=== PATIENT | male | born 1975 | race Caucasian/White ===

== ENCOUNTER 2024-08-10 13:18 | Observation (INO) | payer BC ==
--- NOTE | 2024-08-10 13:36 | ED ---
General Adult HPI - General Stated complaint: sob cp Time Seen by Provider: 08/10/24 13:29 Source: patient Mode of arrival: ambulatory Limitations: no limitations - History of Present Illness Initial comments: Dictation was produced using [employer] dictation software. please excuse any grammatical, word or spelling errors. Chief Complaint: 48-year-old male presents emergency department with chest pain History of Present Illness: Patient is a 48-year-old male presents emergency department with left anterior chest pain. He describes the pain as pressure. States that it feels like a pressure on his left anterior chest. States that there is no radiation of symptoms. Does complain of some clamminess and diaphoresis nausea with it. No obvious family history of heart attacks. Patient has been having the symptoms that have been worsening for the last several days. Denies any association of symptoms with eating. The ROS documented in this emergency department record has been reviewed and confirmed by me. Those systems with pertinent positive or negative responses have been documented in the HPI. All other systems are other negative and/or noncontributory. - Related Data Home Medications Medication Instructions Recorded Confirmed No Known Home Medications 08/10/24 08/10/24 Allergies Allergy/AdvReac Type Severity Reaction Status Date / Time aspirin Allergy Unknown Verified 08/10/24 15:43 Penicillins Allergy Rash/Hives Verified 08/10/24 15:43 macadamia nut oil AdvReac "blacked Verified 08/10/24 15:43 out" Review of Systems ROS Statement: Those systems with pertinent positive or pertinent negative responses have been documented in the HPI. ROS Other: All systems not noted in ROS Statement are negative. Past Medical History Past Medical History: No Reported History Past Surgical History: Appendectomy Additional Past Surgical History / Comment(s): bilateral arm surgery, Past Psychological History: No Psychological Hx Reported Smoking Status: Never smoker Past Alcohol Use History: Occasional Past Drug Use History: None Reported General Exam - General Exam Comments Initial Comments: PHYSICAL EXAM: General Impression: Alert and oriented x3, acute distress secondary to pain HEENT: Normocephalic atraumatic, extra-ocular movements intact, pupils equal and reactive to light bilaterally, mucous membranes moist. Cardiovascular: Heart regular rate and rhythm Chest: Able to complete full sentences, no retractions, no tachypnea Abdomen: abdomen soft, non-tender, non-distended, no organomegaly Musculoskeletal: Pulses present and equal in all extremities, no peripheral edema Motor: no focal deficits noted Neurological: CN II-XII grossly intact, no focal motor or sensory deficits noted Skin: Intact with no visualized rashes Psych: Normal affect and mood Limitations: no limitations Course Vital Signs 08/10/24 08/10/24 08/10/24 13:28 13:55 16:31 Temperature 97.8 F Pulse Rate 96 96 85 Respiratory 18 20 20 Rate Blood Pressure 138/91 129/96 117/67 O2 Sat by Pulse 98 97 96 Oximetry EKG Findings - EKG Comments: EKG Findings:: My EKG interpretation: Ventricular rate 70, sinus rhythm,. 160, QRS 100, QTc 381. No NC prolongation, no QTC prolongation, no ST or T-wave changes noted. Overall, this EKG is unremarkable Medical Decision Making - Medical Decision Making Was pt. sent in by a medical professional or institution (, PA, HYDRAULIC DREDGE OPERATOR, urgent care, hospital, or penitentiary...) When possible be specific @ -No Did you speak to anyone other than the patient for history (EMS, parent, family, police, friend...)? What history was obtained from this source @ -No Did you review nursing and triage notes (agree or disagree)? Why? @ -I reviewed and agree with nursing and triage notes Were old charts reviewed (outside hosp., previous admission, EMS record, old EKG, old radiological studies, urgent care reports/EKG's, penitentiary records)? Report findings @ -No old charts were reviewed Differential Diagnosis (chest pain, altered mental status, abdominal pain women, abdominal pain men, vaginal bleeding, musculoskeletal, weakness, fever, dyspnea, syncope, headache, dizziness, GI bleed, back pain, seizure, CVA, palpatations, mental health)? @ -Differential Chest Pain: Stable Angina, Unstable Angina, STEMI, NSTEMI Aortic Dissection, Pneumothorax, Musculoskeletal, Esophageal Spasm GERD, Cholecystitis, Pancreatitis, Zoster, this is not meant to be an all-inclusive list. EKG interpreted by me (3pts min.). @ -See above X-rays interpreted by me (1pt min.). @ -X-ray of the chest is nonacute CT interpreted by me (1pt min.). @ -None done U/S interpreted by me (1pt. min.). @ -None done What testing was considered but not performed or refused? (CT, X-rays, U/S, labs)? Why? @ -None What meds were considered but not given or refused? Why? @ -None Was smoking cessation discussed for >3mins.? @ -No Were there social determinants of health that impacted care today? How? (Homelessness, low income, unemployed, alcoholism, drug addiction, transportation, low edu. Level, literacy, decrease access to med. care, detention, rehab)? @ -No Was there de-escalation of care discussed even if they declined (Discuss DNR or withdrawal of care, Hospice)? DNR status @ -No What co-morbidities impacted this encounter? (DM, HTN, Smoking, COPD, CAD, Cancer, CVA, ARF, Chemo, Hep., AIDS, mental health diagnosis, sleep apnea, morbid obesity)? @ -None Was patient admitted / discharged? Hospital course, mention meds given and route, prescriptions, significant lab abnormalities, going to OR and other pertinent info. @ -48-year-old male presents with chest pain. Symptoms concerning for acute coronary syndrome. Vital signs are stable. EKG is unremarkable. Laboratory evaluation is unremarkable. Troponin is negative. Disposition options were discussed with patient is agreeable for hospital admission with cardiology consultation. Did you discuss the management of the patient with other professionals (professionals i.e. , PA, HYDRAULIC DREDGE OPERATOR, lab, RT, psych nurse, social welfare clerk, new accounts clerk, teacher, commissioned fire officer, lead case manager)? Give summary @ -Case discussed with hospitalist for admission Was critical care preformed (if so, how long)? @ -No Undiagnosed new problem with uncertain prognosis? @ -No Drug Therapy requiring intensive monitoring for toxicity (Heparin, Nitro, Insulin, Cardizem)? @ -No Were any procedures done? @ -No Diagnosis/symptom? Acute, or Chronic, or Acute on Chronic? Uncomplicated (without systemic symptoms) or Complicated (systemic symptoms)? @ -Acute coronary syndrome Side effects of treatment? @ -No Exacerbation, Progression, or Severe Exacerbation? @ -No Poses a threat to life or bodily function? How? (Chest pain, [place], GA, pneumonia, PE, COPD, DKA, ARF, appy, cholecystitis, CVA, Diverticulitis, Homicidal, Suicidal, threat to staff... and all critical care pts) @ -yes - Lab Data Result diagrams: 08/10/24 13:47 08/10/24 13:47 Lab Results 08/10/24 08/10/24 08/10/24 Range/Units 13:47 13:47 13:47 WBC 5.8 (3.8-10.6) k/uL RBC 5.13 (4.30-5.90) m/uL Hgb 15.9 (13.0-17.5) gm/dL Hct 46.1 (39.0-53.0) % MCV 90.0 (80.0-100.0) fL MCH 30.9 (25.0-35.0) pg MCHC 34.4 (31.0-37.0) g/dL RDW 13.0 (11.5-15.5) % Plt Count 172 (150-450) k/uL MPV 8.6 Neutrophils % 55 % Lymphocytes % 25 % Monocytes % 12 % Eosinophils % 4 % Basophils % 0 % Neutrophils # 3.2 (1.3-7.7) k/uL Lymphocytes # 1.5 (1.0-4.8) k/uL Monocytes # 0.7 (0-1.0) k/uL Eosinophils # 0.2 (0-0.7) k/uL Basophils # 0.0 (0-0.2) k/uL PT 11.1 (10.0-12.5) sec INR 1.0 (<1.2) APTT 24.1 (22.0-30.0) sec Sodium 139 (137-145) mmol/L Potassium 4.2 (3.5-5.1) mmol/L Chloride 104 (98-107) mmol/L Carbon Dioxide 18 L (22-30) mmol/L Anion Gap 17 mmol/L BUN 18 (9-20) mg/dL Creatinine 1.01 (0.66-1.25) mg/dL Est GFR (CKD-EPI)AfAm >90 (>60 ml/min/1.73 sqM) Est GFR (CKD-EPI)NonAf 88 (>60 ml/min/1.73 sqM) Glucose 82 (74-99) mg/dL Calcium 9.6 (8.4-10.2) mg/dL Magnesium 2.0 (1.6-2.3) mg/dL Total Bilirubin 0.9 (0.2-1.3) mg/dL AST 30 (17-59) U/L ALT 33 (4-49) U/L Alkaline Phosphatase 63 (38-126) U/L Troponin I (0.000-0.034) ng/mL NT-Pro-B Natriuret Pep <20 pg/mL Total Protein 7.5 (6.3-8.2) g/dL Albumin 4.4 (3.5-5.0) g/dL 08/10/24 Range/Units 13:47 WBC (3.8-10.6) k/uL RBC (4.30-5.90) m/uL Hgb (13.0-17.5) gm/dL Hct (39.0-53.0) % MCV (80.0-100.0) fL MCH (25.0-35.0) pg MCHC (31.0-37.0) g/dL RDW (11.5-15.5) % Plt Count (150-450) k/uL MPV Neutrophils % % Lymphocytes % % Monocytes % % Eosinophils % % Basophils % % Neutrophils # (1.3-7.7) k/uL Lymphocytes # (1.0-4.8) k/uL Monocytes # (0-1.0) k/uL Eosinophils # (0-0.7) k/uL Basophils # (0-0.2) k/uL PT (10.0-12.5) sec INR (<1.2) APTT (22.0-30.0) sec Sodium (137-145) mmol/L Potassium (3.5-5.1) mmol/L Chloride (98-107) mmol/L Carbon Dioxide (22-30) mmol/L Anion Gap mmol/L BUN (9-20) mg/dL Creatinine (0.66-1.25) mg/dL Est GFR (CKD-EPI)AfAm (>60 ml/min/1.73 sqM) Est GFR (CKD-EPI)NonAf (>60 ml/min/1.73 sqM) Glucose (74-99) mg/dL Calcium (8.4-10.2) mg/dL Magnesium (1.6-2.3) mg/dL Total Bilirubin (0.2-1.3) mg/dL AST (17-59) U/L ALT (4-49) U/L Alkaline Phosphatase (38-126) U/L Troponin I <0.012 (0.000-0.034) ng/mL NT-Pro-B Natriuret Pep pg/mL Total Protein (6.3-8.2) g/dL Albumin (3.5-5.0) g/dL Disposition Clinical Impression: Chest pain Disposition: ADMITTED IP TO THIS HOSP Referrals: None,Stated [Primary Care Provider] - 1-2 days Decision Time: 16:35
[2024-08-10] MEDS: NITROGLYCERIN SL TABS 0.4 MG TAB SUBLINGUAL STA (13:53)
[2024-08-10 13:59] LABS: Basophils % (A) 0 %; Eosinophils # (A) 0.2 k/uL (0-0.7); Eosinophils % (A) 4 %; HCT 46.1 % (39.0-53.0); HGB 15.9 gm/dL (13.0-17.5); Lymphocytes # (A) 1.5 k/uL (1.0-4.8); Lymphocytes % (A) 25 %; MCH 30.9 pg (25.0-35.0); MCHC 34.4 g/dL (31.0-37.0); Mean Platelet Volume 8.6; Monocytes # (A) 0.7 k/uL (0-1.0); Monocytes % (A) 12 %; Neutrophils # (A) 3.2 k/uL (1.3-7.7); Neutrophils % (A) 55 %; Platelet Count 172 k/uL (150-450); RBC 5.13 m/uL (4.30-5.90); WBC 5.8 k/uL (3.8-10.6)
--- NOTE | 2024-08-10 14:18 | XR ---
EXAMINATION TYPE: XR chest 2V DATE OF EXAM: 08/10/2024 2:02 PM COMPARISON: None CLINICAL INDICATION: Male, 48 years old with history of Chest Pain; TECHNIQUE: XR chest 2V Frontal and lateral views of the chest. FINDINGS: Lungs/Pleura: There is no evidence of pleural effusion, focal consolidation, or pneumothorax. Pulmonary vascularity: Unremarkable. Heart/mediastinum: Cardiomediastinal silhouette is unremarkable. Musculoskeletal: No acute osseous pathology. IMPRESSION: No acute cardiopulmonary disease/process. [facility], , 08/10/2024 2:15 PM
[2024-08-10 14:47] LABS: Partial Thromboplastin Time 24.1 sec (22.0-30.0); Prothrombin Time 11.1 sec (10.0-12.5)
[2024-08-10 14:51] LABS: ALT 33 U/L (4-49); AST 30 U/L (17-59); African American GFR (CKD) >90 (>60 ml/min/1.73 sqM); Albumin 4.4 g/dL (3.5-5.0); Blood Urea Nitrogen 18 mg/dL (9-20); Glucose 82 mg/dL (74-99); Non-African American GFR(CKD) 88 (>60 ml/min/1.73 sqM); Total Bilirubin 0.9 mg/dL (0.2-1.3); Total Protein 7.5 g/dL (6.3-8.2)
[2024-08-10 14:52] LABS: Alkaline Phosphatase 63 U/L (38-126)
[2024-08-10 14:59] LABS: NT-Pro-B-Type Natriuretic Pept <20 pg/mL
[2024-08-10 16:05] LABS: Anion Gap 17 mmol/L; Calcium 9.6 mg/dL (8.4-10.2); Carbon Dioxide 18 mmol/L (22-30); Chloride 104 mmol/L (98-107); Sodium 139 mmol/L (137-145)
[2024-08-10 16:16] LABS: Potassium 4.2 mmol/L (3.5-5.1)
[2024-08-10] MEDS ORDERED: NITROGLYCERIN SL TABS 0.4 MG TAB SUBLINGUAL PRN (16:31)
[2024-08-10] MEDS: ASPIRIN 81 MG PO STA (16:34)
[2024-08-10] MEDS ORDERED: HEPARIN SODIUM 1,000 UN/ML (10ML VL) IV PRN (17:18)
--- NOTE | 2024-08-10 17:20 | P.HPIM ---
History of Present Illness H&P Date: 08/10/24 Patient is a 48-year-old male with past medical history of appendectomy, who presented to the ER on 08/10 with chest pain. The pain is left-sided, pressure- like, comes and goes without known triggers, relieved on its own, nonradiating, associated diaphoresis, shortness of breath and nausea. Symptoms started several months ago patient is physically active, exercises, denies symptoms during exertion. Denies any association with food intake, no reflux, indigestion, bowel habit changes. patient is never smoker, family history positive for denies on his mother side: Grandfather and uncle atrial in 50s and 60s Denies personal history of DM, HTN, thyroid diseases. Vital signs: Afebrile, BP 138/91, heart rate in 90s, satting well on room air. CBC unremarkable, coagulation panel unremarkable, CMP significant only for bicarb of 18, negative troponin, negative proBNP. EKG showed sinus rhythm, there are T wave abnormalities, inferior leads changes, no significant ST elevation Patient continues to complain of intermittent left-sided chest pain, due to concern for unstable angina, he was started on heparin, cardiology consulted. Loaded with aspirin, I ordered atorvastatin 80, added A1c, lipid profile and TSH. Pertinent positives and negatives as discussed in HPI, a complete review of systems was performed and all other systems are negative. Patient seen and examined at bedside. Vital signs reviewed General: nontoxic, no distress, appears at stated age Derm: warm, dry Head: atraumatic, normocephalic, symmetric Eyes: EOMI, no lid lag, anicteric sclera, pupils equal round reactive to light ENT: Nose and ears atraumatic Neck: No thyromegaly, supple Mouth: no lip lesion, mucus membranes moist Cardiovascular: S1S2 reg, no murmur, no edema Lungs: clear to auscultation bilateral, no rhonchi, no rales, no wheeze, no accessory muscle use Abdominal: soft, nontender to palpation, no guarding, no appreciable organomegaly Ext: no gross muscle atrophy, muscle strength muscle strength 5 out of 5 in all 4 extremities, no contractures Neuro: CN II-XII grossly intact Psych: Alert, oriented, appropriate affect Assessment/Plan: Left-sided chest pain, concern for unstable angina -Loaded with aspirin, provided with statin) -Continue heparin drip -Cardiology consulted -TTE -Lipid panel, A1c, TSH -Telemetry The patient is admitted with an anticipated [greater] than 2 midnight stay as [observation] status for evaluation of chest pain CODE STATUS: Full code DVT prophylaxis: Heparin drip Anticipated discharge date: TBD Anticipated discharge place: [facility] A total of 40 minutes was spent on the care of this complex patient more than 50% of the time was spent in counseling and care coordination. Past Medical History Past Medical History: No Reported History Past Surgical History: Appendectomy Additional Past Surgical History / Comment(s): bilateral arm surgery, Past Psychological History: No Psychological Hx Reported Smoking Status: Never smoker Past Alcohol Use History: Occasional Past Drug Use History: None Reported Medications and Allergies Home Medications Medication Instructions Recorded Confirmed Type No Known Home Medications 08/10/24 08/10/24 History Allergies Allergy/AdvReac Type Severity Reaction Status Date / Time aspirin Allergy Unknown Verified 08/10/24 15:43 Penicillins Allergy Rash/Hives Verified 08/10/24 15:43 macadamia nut oil AdvReac "blacked Verified 08/10/24 15:43 out" Physical Exam Vitals: Vital Signs Temp Pulse Resp BP Pulse Ox 08/10/24 16:31 85 20 117/67 96 08/10/24 13:55 96 20 129/96 97 08/10/24 13:28 97.8 F 96 18 138/91 98 Intake and Output 08/10/24 08/10/24 08/10/24 06:59 14:59 22:59 Other: Weight 88.451 kg Results CBC & Chem 7: 08/10/24 13:47 08/10/24 13:47 Labs: Abnormal Lab Results - Last 24 Hours (Table) 08/10/24 Range/Units 13:47 Carbon Dioxide 18 L (22-30) mmol/L
[2024-08-10] MEDS: HEPARIN SOD,PORK IN 0.45% NACL 25,000 UNIT in 0.45% NACL 1 250ML.BAG IV SCH (18:03)
[2024-08-10] MEDS: HEPARIN SODIUM 1,000 UN/ML (10ML VL) IV ONE (18:03)
[2024-08-10] MEDS: ATORVASTATIN 80 MG TAB PO STA (18:06)
[2024-08-11 00:27] LABS: Glucose,Whole Blood 131 mg/dL (70-110)
[2024-08-11] MEDS: ASPIRIN 325 MG TAB PO SCH (08:25)
--- NOTE | 2024-08-11 09:27 | P.CRDCN ---
History of Present Illness Consult date: 08/11/24 Consult reason: chest pain History of present illness: This is a 48-year-old male with no previous cardiac history, no significant past medical history. Patient presented to the hospital due to pressure in his sternal area that has been on and off for the past 1 to 2 months. Yesterday, it was much worse than it has been. Sometimes its onset at rest. No radiation to the arms or neck. He does feel it radiates to his back in the thoracic area. He states he has a little shortness of breath. His episode yesterday lasted about 20 minutes. He denies having any syncopal episodes. No lightheadedness or dizziness. His previous episode was 2 to 3 weeks ago. He has not had a cardiac workup in the past. Last evening while he was getting his blood drawn, he did have a pause on telemetry and his heart rate was in his 30s briefly. Patient has been started on heparin drip. Blood pressure 108/73, heart rate 85, pulse ox 98% on room air. Patient states that he is feeling fine this morning. -EKG: Sinus rhythm with no acute ST-T wave changes -Chest x-ray: No acute findings -Laboratory studies: Troponin negative x 3. CBC, INR, CMP unremarkable. Triglycerides 443, cholesterol 236, LDL 154. TSH 2.44. Hemoglobin A1c 5.5. -Home cardiac medications: None Review Of Systems: At the time of my exam: CONSTITUTIONAL: Denies fever or chills. HEENT: Denies blurred vision, vision changes, or eye pain. Denies hemoptysis CARDIOVASCULAR: Denies chest pain. Denies orthopnea. Denies PND. Denies palpitations RESPIRATORY: Denies shortness of breath. GASTROINTESTINAL: Denies abdominal pain. Denies nausea or vomiting. HEMATOLOGIC: Denies bleeding disorders. GENITOURINARY: Denies any blood in urine. SKIN: Denies puritis. Denies rash. Physical examination: Gen: This is a 48-year-old male in no acute distress. VS: reviewed HEENT: Head is atraumatic, normocephalic. Pupils equal, round. Sclerae is anicteric. NECK: Supple. No JVD. LUNGS: Clear to auscultation. No wheezes or rhonchi. No intercostal retractions. HEART: Regular rate and rhythm. No murmur. ABDOMEN: Soft No tenderness. EXTREMITIES: No pedal edema. No calf tenderness. NEUROLOGICAL: Patient is awake, alert and oriented x3. Assessment: Atypical chest pain, acute coronary syndrome ruled out Hypertriglyceridemia Plan: Patient has been started on a atorvastatin 40 mg daily and fenofibrate 160 mg daily Discontinue heparin drip Obtain exercise stress test Obtain 2-D echocardiogram and Doppler study to assess cardiac structure and function If testing is unremarkable, patient is cleared for discharge from cardiology. Thank you kindly for this consultation. Nurse practitioner note has been reviewed, I agree with documented findings and plan of care. Patient was seen and examined. Past Medical History Past Medical History: No Reported History History of Any Multi-Drug Resistant Organisms: None Reported Past Surgical History: Appendectomy Additional Past Surgical History / Comment(s): bilateral arm surgery, Past Psychological History: No Psychological Hx Reported Smoking Status: Never smoker Past Alcohol Use History: Occasional Past Drug Use History: None Reported Medications and Allergies Home Medications Medication Instructions Recorded Confirmed Type No Known Home Medications 08/10/24 08/10/24 History Allergies Allergy/AdvReac Type Severity Reaction Status Date / Time aspirin Allergy Unknown Verified 08/10/24 15:43 Penicillins Allergy Rash/Hives Verified 08/10/24 15:43 macadamia nut oil AdvReac "blacked Verified 08/10/24 15:43 out" Physical Exam Vitals: Vital Signs Temp Pulse Pulse Resp BP BP BP 08/11/24 00:55 98.3 F 89 120/83 08/11/24 00:30 71 93/63 08/10/24 22:55 98.5 F 80 16 137/90 08/10/24 22:15 89 18 117/80 08/10/24 20:58 97 18 122/83 08/10/24 16:31 85 20 117/67 08/10/24 13:55 96 20 129/96 08/10/24 13:28 97.8 F 96 18 138/91 Pulse Ox 08/11/24 00:55 99 08/11/24 00:30 97 08/10/24 22:55 96 08/10/24 22:15 96 08/10/24 20:58 96 08/10/24 16:31 96 08/10/24 13:55 97 08/10/24 13:28 98 Intake and Output 08/10/24 08/11/2408/11/25 22:59 06:59 14:59 Other: # Voids 2 Weight 88.451 kg Results 08/10/24 13:47 08/10/24 13:47 Cardiac Enzymes 08/10/24 08/10/24 08/10/24 Range/Units 13:47 13:47 16:40 AST 30 (17-59) U/L Troponin I <0.012 <0.012 (0.000-0.034) ng/mL 08/10/24 Range/Units 19:24 AST (17-59) U/L Troponin I <0.012 (0.000-0.034) ng/mL Coagulation 08/10/24 08/11/24 Range/Units 13:47 00:19 PT 11.1 (10.0-12.5) sec APTT 24.1 41.0 H (22.0-30.0) sec Lipids 08/10/24 Range/Units 13:47 Triglycerides 443.00 H (0.00-149.00) mg/dL Cholesterol 236.00 H (0.00-200.00) mg/dL HDL Cholesterol 44.50 (40.00-60.00) mg/dL Cholesterol/HDL Ratio 5.30 Ratio CBC 08/10/24 Range/Units 13:47 WBC 5.8 (3.8-10.6) k/uL RBC 5.13 (4.30-5.90) m/uL Hgb 15.9 (13.0-17.5) gm/dL Hct 46.1 (39.0-53.0) % Plt Count 172 (150-450) k/uL Comprehensive Metabolic Panel 08/10/24 Range/Units 13:47 Sodium 139 (137-145) mmol/L Potassium 4.2 (3.5-5.1) mmol/L Chloride 104 (98-107) mmol/L Carbon Dioxide 18 L (22-30) mmol/L BUN 18 (9-20) mg/dL Creatinine 1.01 (0.66-1.25) mg/dL Glucose 82 (74-99) mg/dL Calcium 9.6 (8.4-10.2) mg/dL AST 30 (17-59) U/L ALT 33 (4-49) U/L Alkaline Phosphatase 63 (38-126) U/L Total Protein 7.5 (6.3-8.2) g/dL Albumin 4.4 (3.5-5.0) g/dL Current Medications Generic Name Dose Route Start Last Admin Trade Name Shara PRN Reason Stop Dose Admin Aspirin 325 mg 08/11/24 09:00 Aspirin 325 Mg Tab PO DAILY JORGE Heparin Sodium (Porcine) 0 unit 08/10/24 17:18 Heparin Sodium 1,000 Un/Ml (10ml Vl) IV PER PROTOCOL PRN Low PTT Protocol Heparin Sodium/Sodium Chloride 250 mls @ 10 mls/hr 08/10/24 17:30 08/10/24 18:03 25,000 unit/ Sodium Chloride IV 11.3056 units/kg/hr .Q24H JORGE 10 mls/hr Administration Protocol 11.3056 UNITS/KG/HR Nitroglycerin 0.4 mg 08/10/24 16:31 Nitroglycerin Sl Tabs 0.4 Mg Tab SUBLINGUAL Q5M PRN Chest Pain Intake and Output 08/10/24 08/11/24 08/11/24 22:59 06:59 14:59 Other: # Voids 2 Weight 88.451 kg 08/10/24 13:47 08/10/24 13:47
[2024-08-11] MEDS: FENOFIBRATE 160 MG TAB PO SCH (10:01)
[2024-08-11] MEDS: ATORVASTATIN 40 MG TAB PO SCH (10:01)
[2024-08-11 10:14] LABS: HCT 47.1 % (39.0-53.0); HGB 15.7 gm/dL (13.0-17.5); MCH 30.8 pg (25.0-35.0); MCHC 33.3 g/dL (31.0-37.0); MCV 92.4 fL (80.0-100.0); Mean Platelet Volume 8.5; Platelet Count 176 k/uL (150-450); RDW 12.7 % (11.5-15.5); WBC 5.6 k/uL (3.8-10.6)
[2024-08-11 10:33] LABS: ALT 34 U/L (4-49); AST 28 U/L (17-59); African American GFR (CKD) >90 (>60 ml/min/1.73 sqM); Albumin 4.1 g/dL (3.5-5.0); Albumin/Globulin Ratio 1.4; Alkaline Phosphatase 67 U/L (38-126); Anion Gap 7 mmol/L; Blood Urea Nitrogen 16 mg/dL (9-20); Calcium 9.1 mg/dL (8.4-10.2); Carbon Dioxide 28 mmol/L (22-30); Chloride 103 mmol/L (98-107); Globulin 2.9 g/dL; Glucose 96 mg/dL (74-99); Non-African American GFR(CKD) >90 (>60 ml/min/1.73 sqM); Potassium 4.2 mmol/L (3.5-5.1); Sodium 138 mmol/L (137-145); Total Bilirubin 0.8 mg/dL (0.2-1.3)
[2024-08-11 16:20] LABS: Chol/HDL Ratio 4.26 Ratio
[2024-08-11 16:22] LABS: LDL Cholesterol,Calculated 137.8 mg/dL (0.0-131.0)
--- NOTE | 2024-08-11 19:05 | P.PN ---
Subjective Progress Note Date: 08/11/24 Hospital course: Patient is a 48-year-old male with only reported past medical history being appendectomy. He presented to the emergency department on 08/10/2024 with a chief complaint of chest pain. Upon arrival to our facility, patient underwent evaluation in the emergency department. Vital signs upon arrival show blood pressure 138/91, heart rate 96, respiratory rate 18, temp 97.8 F, and SpO2 of 98% on room air. EKG was completed showing normal sinus mechanism at 87 bpm. Ch est x-ray completed negative for acute cardiopulmonary process. Labs completed and reviewed. CBC and coagulation profile normal findings. BMP showing mild high anion gap metabolic acidosis with chloride of 104, bicarb of 18, and anion gap of 7. Magnesium 2.0. Calcium 9.6. Liver profile unremarkable. Troponin was negative at less than 0.012. Patient was admitted under our services with consultation to cardiology. Troponins were trended all negative at less than 0.012 x 3 draws. Lipid profile showing elevated triglycerides of 443, total cholesterol of 236 and LDL of 154 with VLDL of 88.60. TSH was normal findings at 2.440. Hemoglobin A1c 5.5. Physical exam: Vital signs reviewed and stable. General: Nontoxic, no distress and appears stated age. Derm: Skin warm and dry, normal coloration for ethnicity. Head: Atraumatic, normocephalic and symmetric. Eyes: EOM's intact, no lid lag, and anicteric sclera Mouth: no lip lesions, mucus membranes moist Cardiovascular: regular rate and rhythm with normal S1S2, no murmur, positive posterior tibial pulses bilaterally, and cap refill < 2 seconds. Lungs: Respirations even, regular, and unlabored on room air. Lungs CTA bilaterally, no rhonchi, no rales, no wheezing, and no accessory muscle usage. Abdominal: soft, nontender to palpation, no guarding, no appreciable organomegaly Ext: ROM intact. No gross muscle atrophy, no edema, no contractures Neuro: Speech clear, face symmetrical and CN II-XII grossly intact with no noted focal neuro deficits Psych: Alert and oriented to person, place, time, and situation. Appropriate and pleasant affect. Assessment and Plan of Care: Chest pain, rule out acute coronary event Hyperlipidemia, newly diagnosed -Cardiology consulted, appreciate recommendations -Telemetry monitoring -Troponins were trended all negative at less than 0.012 x 3 draws. -Lipid profile showing elevated triglycerides of 443, total cholesterol of 236 and LDL of 154 with VLDL of 88.60. Hemoglobin A1c 5.5. -Continue aspirin 81 mg daily, atorvastatin 40 mg daily, fenofibrate 160 mg daily, and sublingual nitro 0.4 mg every 5 minutes as needed for chest pain. -Continue heparin infusion with close monitoring of PTT for goal therapeutic range of 45 to 79 seconds. -Echocardiogram to be completed Data reviewed: -Troponins were trended all negative at less than 0.012 x 3 draws. Lipid profile showing elevated triglycerides of 443, total cholesterol of 236 and LDL of 154 with VLDL of 88.60. TSH was normal findings at 2.440. Hemoglobin A1c 5.5. -Vital signs reviewed. Blood pressure 108/73, heart rate 85, respiratory rate 15, temp 98.3 F, and SpO2 of 98% on room air. CODE STATUS: Full code DVT prophylaxis: Heparin Anticipated discharge date: Pending echocardiogram, stress test results, and clearance from cardiology Anticipated discharge place: Home Patient was seen independently by Nurse Pracitioner. This document was prepared using [employer] dictation software. Please allow for errors in housing management representative, while rare they do occur. Cali Vera NP rendered care for this patient independently, reviewed the findings and plan as documented in the note above and agree with plan. I did not physically speak with or examine the patient on this date. Objective - Vital Signs Vital signs: Vital Signs Temp 98.3 F 08/11/24 07:00 Pulse 85 08/11/24 07:00 Resp 15 08/11/24 07:00 BP 108/73 08/11/24 07:00 Pulse Ox 98 08/11/24 07:00 FiO2 Intake & Output 08/10/24 08/11/24 08/11/24 18:59 06:59 18:59 Weight 88.451 kg 88.451 kg Other: # Voids 2 - Labs CBC & Chem 7: 08/11/24 09:48 08/11/24 09:48 Labs: Abnormal Lab Results - Last 24 Hours (Table) 08/10/24 08/10/24 08/11/24 Range/Units 13:47 13:47 00:19 APTT 41.0 H (22.0-30.0) sec Carbon Dioxide 18 L (22-30) mmol/L POC Glucose (mg/dL) (70-110) mg/dL Triglycerides 443.00 H (0.00-149.00) mg/dL Cholesterol 236.00 H (0.00-200.00) mg/dL LDL Cholesterol Direct 154.00 H (0.00-129.00) mg/dL VLDL Cholesterol, Calc 88.60 H (5.00-40.00) mg/dL 08/11/24 Range/Units 00:25 APTT (22.0-30.0) sec Carbon Dioxide (22-30) mmol/L POC Glucose (mg/dL) 131 H (70-110) mg/dL Triglycerides (0.00-149.00) mg/dL Cholesterol (0.00-200.00) mg/dL LDL Cholesterol Direct (0.00-129.00) mg/dL VLDL Cholesterol, Calc (5.00-40.00) mg/dL
--- NOTE | 2024-08-12 07:34 | CA ---
Transthoracic Echo Report Name: Geronimo Niño Age: 48 Gender: M : 1975 Exam Date: 08/11/2024 11:05 Exam Location: [facility] Echo Ht (in): 68 Wt (lb): 195 Ordering Physician: Farhana Guadarrama MD Attending/Referring Phys: Shoe Worker Iva Moreland RDCS Procedure CPT: Indications: unstable angina Cardiac Hx: Technical Quality: Contrast 1: Total Dose (mL): Contrast 2: Total Dose (mL): MEASUREMENTS (Male / Female) Normal Values 2D ECHO LV Diastolic Diameter PLAX 3.8 cm 4.2 - 5.9 / 3.9 - 5.3 cm LV Systolic Diameter PLAX 2.3 cm IVS Diastolic Thickness 1.0 cm 0.6 - 1.0 / 0.6 - 0.9 cm LVPW Diastolic Thickness 1.0 cm 0.6 - 1.0 / 0.6 - 0.9 cm LV Relative Wall Thickness 0.6 RV Internal Dim ED PLAX 3.4 cm LA Systolic Diameter LX 3.8 cm 3.0 - 4.0 / 2.7 - 3.8 cm LV Diastolic Volume MOD BP 72.9 cm??? 67 - 155 / 56 - 104 cm??? LV Systolic Volume MOD BP 32.4 cm??? 22 - 58 / 19 - 49 cm??? LV Ejection Fraction MOD BP 55.6 % >= 55 % LV Diastolic Volume MOD 4C 80.5 cm??? LV Systolic Volume MOD 4C 33.7 cm??? LV Ejection Fraction MOD 4C 58.1 % LV Diastolic Length 4C 8.3 cm LV Systolic Length 4C 6.6 cm LV Diastolic Volume MOD 2C 61.6 cm??? LV Systolic Volume MOD 2C 31.6 cm??? LV Ejection Fraction MOD 2C 48.7 % LV Diastolic Length 2C 7.7 cm LV Systolic Length 2C 6.6 cm LA Volume 33.7 cm??? 18 - 58 / 22 - 52 cm??? LA Volume Index 16.2 cm???/m??? 16 - 28 cm???/m??? M-MODE Aortic Root Diameter MM 3.3 cm DOPPLER AV Peak Velocity 108.6 cm/s AV Peak Gradient 4.7 mmHg MV Area PHT 3.6 cm??? Mitral E Point Velocity 74.5 cm/s Mitral A Point Velocity 87.8 cm/s Mitral E to A Ratio 0.8 MV Deceleration Time 211.0 ms TR Peak Velocity 198.4 cm/s TR Peak Gradient 15.7 mmHg Right Ventricular Systolic Press 20.7 mmHg FINDINGS Left Ventricle Left ventricular ejection fraction is estimated at 55-60 %. Small left ventricular cavity. Left ventricular wall thickness normal. Normal left ventricular wall motion. Right Ventricle Mild right ventricular dilatation. Right ventricular systolic pressure within normal limits. Right Atrium Normal right atrial size. No right atrial thrombus or mass seen. Left Atrium Normal left atrial size. No left atrial thrombus or mass present. Mitral Valve Structurally normal mitral valve. No mitral stenosis, regurgitation or prolapse. Aortic Valve Trileaflet aortic valve. No aortic valve stenosis or regurgitation. Tricuspid Valve Structurally normal tricuspid valve. Mild tricuspid regurgitation. Pulmonic Valve Pulmonic valve not well visualized. No pulmonic regurgitation. Pericardium No pericardial effusion. Aorta Normal size aortic root and proximal ascending aorta. CONCLUSIONS Normal biventricular systolic function Normal pulmonary artery systolic pressure with mildly dilated RV No significant valvular abnormalities No pericardial effusion Previewed by: Dr. Pio Gordon MD (Electronically Signed) Final Date: 12 August 2024 07:33
--- NOTE | 2024-08-12 09:06 | CA ---
Exercise Stress Test Report Name: Geronimo Niño Exam Date: 08/11/2024 10:40 Exam Location: [facility] Stress Ht (in): 68 Wt (lb): 195 BSA: 2.02 Ordering Phys: Thu Tucker Referring Phys: THU TUCKER Technologist: Felipa Loomis Age: 48 Gender: M : 1975 Procedure CPT: Indications: Chest Pain ICD-10 Codes: Patient History: Chest pain and shortness of breath Medications: SEE CHART,,, Meds past 24 hrs: Pretest Chest Pain: STRESS TEST Moy Protocol Exercise Duration (min:sec): 10:[address] Depressions (mm): Angina Score: Hong Score: Resting HR (bpm): 78 Peak HR (bpm): 153 Resting BP (mmHg): 122 / 86 Peak BP (mmHg): 179 / 95 MPHR: 172 Target HR: 146 % MPHR: 89 METS: 12.1 Total Dose: Peak Dose: Atropine: Double Product: 34268 BP Response: Stress Termination: TARGET HR REACHED/MAX EXERTION Stress Symptoms: DIZZINESS Stress Summary: ECG ANALYSIS Resting ECG: Stress ECG: CONCLUSIONS Excellent exercise tolerance Normal electrocardiogram stress testing Dr. Pio Gordon MD (Electronically Signed) Final Date: 12 August 2024 09:05
[2024-08-12 09:31] VITALS: BP 167/86; RESP 15; TEMP 97.6
[2024-08-12 10:23] VITALS: PULSE 55
--- NOTE | 2024-08-12 10:23 | P.DS ---
Providers Date of admission: 08/10/24 16:31 Expected date of discharge: 08/12/24 Attending physician: Juan Jose Darnell Consults: 08/10/24 16:31 Consult Physician Urgent Consulting Provider: Pio Gordon Consult Reason/Comments: chest pain Do you want consulting provider notified?: Yes Primary care physician: Stated None Hospital Course: Discharge Diagnosis: Chest pain, acute coronary event ruled out. Hyperlipidemia with hypertriglyceridemia, newly diagnosed. Patient educated on following heart healthy and carb consistent diet and discharged home on atorvastatin 81 mg daily and fenofibrate 160 mg daily. Hospital Course: Patient is a 48-year-old male with only reported past medical history being appendectomy. He presented to the emergency department on 08/10/2024 with a chief complaint of chest pain. Upon arrival to our facility, patient underwent evaluation in the emergency department. Vital signs upon arrival show blood pressure 138/91, heart rate 96, respiratory rate 18, temp 97.8 F, and SpO2 of 98% on room air. EKG was completed showing normal sinus mechanism at 87 bpm. Chest x-ray completed negative for acute cardiopulmonary process. Labs completed and reviewed. CBC and coagulation profile normal findings. BMP showing mild high anion gap metabolic acidosis with chloride of 104, bicarb of 18, and anion gap of 7. Magnesium 2.0. Calcium 9.6. Liver profile unremarkable. Troponin was negative at less than 0.012. Patient was admitted under our services with consultation to cardiology. Troponins were trended all negative at less than 0.012 x 3 draws. Lipid profile showing elevated triglycerides of 443, total cholesterol of 236 and LDL of 154 with VLDL of 88.60. TSH was normal findings at 2.440. Hemoglobin A1c 5.5. Echocardiogram was completed showing a preserved EF of 55 to 60% with no significant valvular or structural abnormalities. Patient was taken for stress test which was reported excellent exercise tolerance with normal stress testing. Discussed in detail with shift production associate, patient cleared from cardiac standpoint for discharge recommending outpatient follow-up in their office in 1 to 2 weeks. Patient was discharged home on atorvastatin 40 mg daily and fenofibrate 160 mg daily secondary to triglyceride level of 443 and total cholesterol of 263 with LDL of 154 and VLDL of 88.60. Patient is medically optimized and cleared for discharge. Patient to follow-up up with [facility] for posthospitalization follow-up and to establish care with PCP 1 to 2 days and with shift production associate in 1 to 2 weeks. Physical exam: Vital signs reviewed and stable. General: Nontoxic, no distress and appears stated age. Derm: Skin warm and dry, normal coloration for ethnicity. Head: Atraumatic, normocephalic and symmetric. Eyes: EOM's intact, no lid lag, and anicteric sclera Mouth: no lip lesions, mucus membranes moist Cardiovascular: regular rate and rhythm with normal S1S2, no murmur, positive posterior tibial pulses bilaterally, and cap refill < 2 seconds. Lungs: Respirations even, regular, and unlabored on room air. Lungs CTA bilaterally, no rhonchi, no rales, no wheezing, and no accessory muscle usage. Abdominal: soft, nontender to palpation, no guarding, no appreciable organomegaly Ext: ROM intact. No gross muscle atrophy, no edema, no contractures Neuro: Speech clear, face symmetrical and CN II-XII grossly intact with no noted focal neuro deficits Psych: Alert and oriented to person, place, time, and situation. Appropriate and pleasant affect. A total of 31minutes of time were spent preparing this complex discharge summary. Pt was discharged on 08/12/2024 at 9:36 AM Patient was seen independently by Nurse Practitioner. This document was prepared using [employer] dictation software. Please allow for errors in overhead worker while rare they do occur. Cali Vera NP rendered care for this patient independently, reviewed the findings and plan as documented in the note above. I did not physically speak with or examine the patient on this date. Patient Condition at Discharge: Stable Plan - Discharge Summary New Discharge Prescriptions: New Atorvastatin [Lipitor] 40 mg PO DAILY 30 Days #30 tab Fenofibrate [Lofibra] 160 mg PO DAILY 30 Days #30 tab Discharge Medication List Atorvastatin [Lipitor] 40 mg PO DAILY 30 Days #30 tab 08/12/24 [Rx] Fenofibrate [Lofibra] 160 mg PO DAILY 30 Days #30 tab 08/12/24 [Rx] Follow up Appointment(s)/Referral(s): Pio Gordon MD [STAFF PHYSICIAN] - 1 Week (Office will call with Appointment date and time.) [facility] [NON-STAFF] - 08/14/24 9:30 am (Call and schedule patient an appointment prior to discharging.) Patient Instructions/Handouts: Chest Pain (DC) Activity/Diet/Wound Care/Special Instructions: Activity: As tolerated. Take breaks as needed. Diet: Heart healthy and carb consistent diet. Avoid salts, or foods with hidden salts such as canned or boxed foods and frozen dinners. Extra salt makes your heart work harder and traps the fluid in your body for longer. Special Instructions: Take all of your medications as directed and remember to keep all of your doctor's appointments and follow-up as needed. Thank you for allowing us to participate in your care, it was truly a pleasure having you for our patient!!! . Discharge Disposition: HOME SELF-CARE
--- NOTE | 2024-08-12 11:33 | P.PN ---
Subjective Progress Note Date: 08/12/24 Consult reason: chest pain History of present illness: This is a 48-year-old male with no previous cardiac history, no significant past medical history. Patient presented to the hospital due to pressure in his sternal area that has been on and off for the past 1 to 2 months. Yesterday, it was much worse than it has been. Sometimes its onset at rest. No radiation to the arms or neck. He does feel it radiates to his back in the thoracic area. He states he has a little shortness of breath. His episode yesterday lasted about 20 minutes. He denies having any syncopal episodes. No lightheadedness or dizziness. His previous episode was 2 to 3 weeks ago. He has not had a cardiac workup in the past. Last evening while he was getting his blood drawn, he did have a pause on telemetry and his heart rate was in his 30s briefly. Patient has been started on heparin drip. Blood pressure 108/73, heart rate 85, pulse ox 98% on room air. Patient states that he is feeling fine this morning. -EKG: Sinus rhythm with no acute ST-T wave changes -Chest x-ray: No acute findings -Laboratory studies: Troponin negative x 3. CBC, INR, CMP unremarkable. Triglycerides 443, cholesterol 236, LDL 154. TSH 2.44. Hemoglobin A1c 5.5. -Home cardiac medications: None 08/12 Patient seen and examined. Patient denies having chest pain this morning. Patient underwent a walking exercise stress test yesterday which unfortunately was not read due to a malfunction of the computer. Exercise stress test revealed excellent exercise tolerance and normal electrocardiogram stress testing echocardiogram reveals normal biventricular systolic function, normal p ulmonary artery systolic pressure with mildly dilated RV, no significant valvular abnormalities. No pericardial effusion. Physical examination: Gen: This is a 48-year-old male in no acute distress. VS: reviewed HEENT: Head is atraumatic, normocephalic. Pupils equal, round. Sclerae is anicteric. NECK: Supple. No JVD. LUNGS: Clear to auscultation. No wheezes or rhonchi. No intercostal retractio ns. HEART: Regular rate and rhythm. No murmur. ABDOMEN: Soft No tenderness. EXTREMITIES: No pedal edema. No calf tenderness. NEUROLOGICAL: Patient is awake, alert and oriented x3. Assessment: Atypical chest pain, acute coronary syndrome ruled out Hypertriglyceridemia Pauses on telemetry when patient was getting blood drawn. Plan: Patient has been started on a atorvastatin 40 mg daily and fenofibrate 160 mg daily Patient is cleared for discharge from cardiology. Patient will poultry picker an event monitor 14-day from [facility] Follow-up with Dr. Gordon in 3 weeks. Nurse practitioner note has been reviewed, I agree with documented findings and plan of care. Patient was seen and examined. Objective - Vital Signs Vital signs: Vital Signs Temp 98.3 F 08/12/24 03:30 Pulse 86 08/12/24 03:30 Resp 18 08/12/24 03:30 BP 116/77 08/12/24 03:30 Pulse Ox 95 08/12/24 03:30 FiO2 Intake & Output 08/11/24 08/12/24 08/12/24 18:59 06:59 18:59 Intake Total 444 Balance 444 Intake: Oral 444 Other: # Voids 4 0 - Labs CBC & Chem 7: 08/11/24 09:48 08/11/24 09:48 Labs: Abnormal Lab Results - Last 24 Hours (Table) 08/11/24 Range/Units 09:48 Cholesterol 212.00 H (0.00-200.00) mg/dL LDL Cholesterol, Calc 137.8 H (0.0-131.0) mg/dL
== END 2024-08-12 10:36 | disposition home or self-care (01) ==
LOC: EC 13:18 → 6NMEDSUR 16:31
PROVIDERS: ADMIT Student in an Organized Health Care Education/Training Program; ATTEND Student in an Organized Health Care Education/Training Program
DX: R07.89 Other chest pain (principal); E87.20 Acidosis, unspecified; E78.1 Pure hyperglyceridemia; R61 Generalized hyperhidrosis; R06.02 Shortness of breath; Z88.0 Allergy status to penicillin; Z88.6 Allergy status to analgesic agent; Z91.018 Allergy to other foods; Z90.49 Acquired absence of other specified parts of digestive tract
CPT/HCPCS: 96366 ×2; 96376; 96365; 99285; 36415; 93005 ×2; 93017; 93306; 83880; 80061 ×2; 80053 ×2; 84443; 83735 ×2; 84484; 85025; 85027; 85610; 85730 ×2; 83721; 83036; 71046; G0378 ×3; J1644 ×2